=== PATIENT | female | born 1955 | race Caucasian/White ===

== ENCOUNTER → 2021-05-16 09:39 | Outpatient (REF) | payer MEDICARE, BC, SELFPAY | LOC: ANHLAB 09:39 | PROVIDERS: Visit Provider Nurse Practitioner | DX: D49.2 Neoplasm of unspecified behavior of bone, soft tissue, and skin (principal) | CPT/HCPCS: 88305 ==

== ENCOUNTER 2023-12-12 13:15 | Emergency (ER) | payer MEDICARE, OTHER, SELFPAY ==
[2023-12-12 13:21] VITALS: BP 113/74; PULSE 61; RESP 20; TEMP 36.1; O2SAT 99
--- NOTE | 2023-12-12 13:49 | ED.ALLEREA ---
HPI - Allergic Reaction General Chief complaint: Allergic Reaction Stated complaint: reaction Time Seen by Provider: 12/12/23 13:43 Source: patient and family (Daughter ) Mode of arrival: ambulatory Limitations: no limitations History of Present Illness HPI narrative: Patient presents with a note from [facility] she was at receiving an aesthetic treatment: 9:40 -applied numbing to face for procedure. 10:00 -started vitamin IV (which patient has had before in the past). After about 15 minutes client told nurse that she was feeling nauseous. IV was stopped. A Few minutes after patient complained that her chest felt weird and that she could feel her pulse dropping. Manual pulse was taken, 44 beats per minute. O2 sat 99%. No pain, no trouble breathing. Patient felt clammy. Blood pressure was taken 174/97. Patient began vomiting. Checked glucose 225. Blood pressure was rechecked which was 190s over 80s. Check BP again at 11 blood pressure 170/94, pulse 45. Continue to monitor, ran bolus 500 mL normal saline. 1130 - pt blood pressure 126/77 pulse is still in 45s. 1210 - pt blood pressure 103/74 (more her normal), pulse 46. The topical agent applied to face was reported to be lidocaine + tetracaine + epinephrine. On my exam, she denies any SOB or mariela chest pain, only a tightnness that resolved. She felt her heart rate slow. States her throat felt tight and she was briefly clammy. She felt nauseated and had 1 episode of emesis, felt diaphoretic/clammy. Medication list also includes flecainide. Related Data Home Medications Medication Instructions Recorded Confirmed amiodarone 200 mg tablet 200 mg PO DAILY 05/16/21 apixaban 5 mg tablet (Eliquis) 5 mg PO BID 05/16/21 carvedilol 6.25 mg tablet 6.25 mg PO Q12H 05/16/21 coenzyme Q10 10 mg capsule 10 mg PO ONCE 05/16/21 multivitamin 1 tablet PO DAILY 05/16/21 omega-3 fatty acids 1,000 mg 1,000 mg PO DAILY 05/16/21 capsule (Fish Oil Concentrate) Allergies Allergy/AdvReac Type Severity Reaction Status Date / Time naproxen Allergy Hives Verified 12/12/23 14:08 [facility] Past Medical History Medical History (Updated 12/13/23 @ 00:00 by Araseli Bose) Atrial fibrillation Surgical History Surgical History (Updated 05/16/21 @ 09:15 by Maria E Bennett CMA) History of colon resection Social History Social History (Updated 05/16/21 @ 09:16 by Maria E Bennett CMA) Smoking status: Unknown if ever smoked Alcohol intake: unknown Substance use: unknown Exam Narrative: GENERAL: Well-appearing, well-nourished, and in no acute distress. HEAD: Normocephalic, atraumatic. EYES: Non injected, non icteric ENT: Nares clear, no rhinorrhea or epistaxis. NECK: Supple without fullness. CHEST: Speaking in full sentence. No respiratory distress. HEART: Regular rate and rhythm on monitor and on palpation bilateral radial pulses . ABDOMEN: Soft, nondistended. EXTREMITIES: Normal range of motion. No edema. SKIN: Warm, dry, no rash/urticaria. Slight hyperemia around neck. NEURO: No focal deficits. Alert and oriented x3. PSYCH: Normal mood and affect. Course Vital Signs Vital signs: Vital Signs Temperature 96.9 F L 12/12/23 13:21 Pulse Rate 61 12/12/23 13:21 Respiratory Rate 20 12/12/23 13:21 Blood Pressure 113/74 12/12/23 13:21 Pulse Oximetry 99 12/12/23 13:21 Oxygen Delivery Room Air 12/12/23 13:21 Temperature 97.6 F 12/12/23 14:58 Pulse Rate 69 12/12/23 14:58 Respiratory Rate 17 12/12/23 14:58 Blood Pressure 111/80 12/12/23 14:58 Pulse Oximetry 99 12/12/23 14:58 Oxygen Delivery Room Air 12/12/23 13:21 MDM - Allergic Reaction MDM Narrative Medical decision making narrative: Patient presents after having the above symptoms after a topical combination of lidocaine/tetracaine/epinephrine was applied to patient's face prior to an aesthetic procedure. She
[2023-12-12] MEDS: predniSONE 20 MG TABLET 40 MG PO (14:10)
[2023-12-12 14:13] VITALS: BP 121/81; PULSE 61; RESP 16; O2SAT 98
--- NOTE | 2023-12-12 14:13 | ECG_ITS ---
Measurements Intervals [place] Rate: 55 P: 48 KS: 213 QRS: 42 QRSD: 117 T: 86 QT: 409 QTc: 392 Interpretive Statements SINUS BRADYCARDIA WITH FIRST DEGREE AV BLOCK INCOMPLETE RIGHT BUNDLE BRANCH BLOCK BASELINE ARTIFACT- I, II, AVR, V1 BORDERLINE ECG NO PREVIOUS ECG AVAILABLE FOR COMPARISON Electronically Signed On 12-12-2023 14:39:38 [employer] DIRECT[employer] by Kirk Cruz D.O.
[2023-12-12 14:58] VITALS: BP 111/80; PULSE 69; RESP 17; TEMP 36.4; O2SAT 99
== END 2023-12-12 15:01 | disposition home or self-care (01) ==
PROVIDERS: Emergency Provider Student in an Organized Health Care Education/Training Program
DX: R07.89 Other chest pain (principal); R00.1 Bradycardia, unspecified; I48.91 Unspecified atrial fibrillation; Z79.01 Long term (current) use of anticoagulants; Z90.49 Acquired absence of other specified parts of digestive tract; I45.10 Unspecified right bundle-branch block; I44.0 Atrioventricular block, first degree; T41.3X5A Adverse effect of local anesthetics, initial encounter; T44.5X5A Adverse effect of predominantly beta-adrenoreceptor agonists, initial encounter
CPT/HCPCS: 93005; 99283; J7512